=== PATIENT | male | born 1955 | race Caucasian/White ===

== ENCOUNTER 2016-11-14 13:13 | Emergency (ER) | payer OTHER ==
--- NOTE | ~2016-11-14 | CR72 ---
[facility] A Service of [facility] & [facility] RADIOLOGY TEXT RESULTS PATIENT: JEMAL TIPTON LOCATION: [place] : 53 UNIT #: [id number] AGE: [address]: Mirian Richmond MD SEX: M ORDER DR: [id number] [facility] [address] [place], [place] [address] [id number] E MR#: [id number] Acc #: [id number] NAME: JEMAL TIPTON : 1955 SEX: M STUDY DATE/TIME: 11/14/2016 13:21 UNIT: [facility] ROOM: STUDY DESCRIPTION: CR Chest Single View Portable Attending Physician: Mirian Richmond M.D. Ordering Physician: Mirian Richmond M.D. Primary Care Physician: No Primary Care Physician MEDICAL IMAGING REPORT This report is preliminary unless electronic signature is present EXAM AP portable chest, 11/14/2016. COMPARISON STUDIES None HISTORY Trach replacement today with cough and congestion. FINDINGS An AP view is obtained. The heart size appears normal. Lungs are clear. Tracheostomy tube remains in good position. No pneumothorax is seen. CONCLUSION Trach is in good position. No acute process in the chest. Dictated by... Abdi Perez M.D. THIS IS AN ELECTRONICALLY VERIFIED REPORT Abdi Perez M.D. at 11/15/2016 5:02 PM WILLAM/zain TD: 11/14/2016 14:49 JOB #: [id number] MEDICAL IMAGING REPORT Page 1 of 1 COPY
== END 2016-11-14 14:12 | disposition home or self-care (01) ==
LOC: CED 13:13
DX: Z43.0 Encounter for attention to tracheostomy (principal); J44.9 Chronic obstructive pulmonary disease, unspecified; I10 Essential (primary) hypertension
CPT/HCPCS: 71010; 99283

== ENCOUNTER 2016-12-24 10:47 | Emergency (ER) | payer OTHER ==
--- NOTE | ~2016-12-24 | CR72 ---
[facility] A Service of [facility] RADIOLOGY TEXT RESULTS PATIENT: JEMAL TIPTON LOCATION: [facility] : 53 UNIT #: [id number] AGE: [address]: Glynn Vo MD SEX: M ORDER DR: [id number] [facility] [address] [place], [place] [address] [id number] E MR#: [id number] Acc #: [id number] NAME: JEMAL TIPTON : 1955 SEX: M STUDY DATE/TIME: 12/24/2016 11:29 UNIT: [facility] ROOM: STUDY DESCRIPTION: CR Chest Single View Portable Attending Physician: Glynn Vo M.D. Ordering Physician: Glynn Vo M.D. Primary Care Physician: Primary Care Physician No MEDICAL IMAGING REPORT This report is preliminary unless electronic signature is present EXAM Chest portable 12/24/2016 1129 hours HISTORY 61-year-old man with cough, fever, elevated heart rate, shortness of air today with low blood pressure today. COMPARISON 11/14/2016. FINDINGS Portable upright chest demonstrates tracheostomy appliance with tip in the mid trachea. There is a right central venous port catheter with tip at the junction of SVC and right atrium. The heart size is normal. There is increase in soft tissue density in the right superior paramediastinal region with soft tissue density measuring 3.5 cm transverse from the lateral margin of the trachea to the lateral margin of the soft tissue density where it previously measured 2.6 cm. This could represent lymphadenopathy. Atelectatic lung is possible however the minor fissure is not changed in appearance and does not suggest significant volume loss in the upper lung. There is no definite pneumonia, effusion or pneumothorax. IMPRESSION 1. Stable tracheostomy appliance with tip in mid trachea. There is a right central venous port catheter with tip at the junction of SVC and right atrium. No pneumothorax. 2. There is increase in soft tissue density in the right superior paramediastinal, right paratracheal region as compared to 11/14/2016. This is worrisome for lymphadenopathy, however other entities including loculated pleural fluid could have this appearance. If the right central venous catheter is new, this could represent a hematoma. The catheter was not present on 11/14/2016 and I do not know when [facility] Service of [facility] RADIOLOGY TEXT RESULTS PATIENT: JEMAL TIPTON LOCATION: [place] : 51 UNIT #: [id number] AGE: [address]: Glynn Vo MD SEX: M ORDER DR: was inserted. STAT * RESULT Dictated by... Sera Blank M.D. THIS IS AN ELECTRONICALLY VERIFIED REPORT Sera Blank M.D. at 12/24/2016 2:26 PM JAKOB/clayton TD: 12/24/2016 12:09 JOB #: [id number] MEDICAL IMAGING REPORT Page 1 of 1 COPY
--- NOTE | ~2016-12-24 | EKG ---
PATIENT: JEMAL TIPTON UNIT #: [id number] Ventricular Rate: 122 BPM Atrial Rate: 122 BPM P-R Interval: 116 ms QRS Duration: 80 ms Q-T Interval: 326 ms QTC Calculation(Bezet): 464 ms P Byron: 58 degrees Calculated R Byron: -6 degrees Calculated T Byron: 79 degrees Diagnosis Line: Sinus tachycardia Diagnosis Line: Otherwise normal ECG Diagnosis Line: No previous ECGs available Diagnosis Line: Confirmed by BRAD JOAQUIN MD ([id number]) on Diagnosis Line: 12/25/2016 4:26:41 PM INTERPRETING MD: JEMAL DURON
[2016-12-24] MEDS ORDERED: ZYRTEC10 M1 PO (11:21)
[2016-12-24] MEDS ORDERED: NEURONTIN300 MG PO (11:21)
[2016-12-24] MEDS ORDERED: BACLOFEN10 MG PO (11:21)
[2016-12-24] MEDS ORDERED: ASPIRIN EC81 M1 PO (11:22)
[2016-12-24] MEDS ORDERED: AMLODIPINE BESY10 MG PO (11:22)
[2016-12-24] MEDS ORDERED: ATORVASTATIN CA40 MG PO (11:22)
[2016-12-24] MEDS ORDERED: PERCOCET7.5 PO (11:23)
[2016-12-24] MEDS ORDERED: TEMAZEPAM PO (11:23)
[2016-12-24] MEDS ORDERED: DURAGESIC1 EAC1 TD (11:24)
[2016-12-24] MEDS ORDERED: HYDROCODON-ACE1 EAC5 PO (11:26)
[2016-12-24] MEDS ORDERED: ZOFRANODT SL (11:27)
[2016-12-24 13:04] LABS: BASOPHIL% 1.3 % (0-2.5); EOSINOPHIL% 0.8 % (0.0-7.0); HEMATOCRIT 31.8 % (38.0-50.0); LYMPHOCYTE# 0.3 X10e3 (1.0-3.5); LYMPHOCYTE% 33.7 % (17.0-45.0); MEAN CELL VOLUME 79.9 FL (83-96); MEAN CORPUSCULAR HEMOGLOBIN 25.3 PG (28-34); MEAN CORPUSCULAR HGB CONC 31.6 g/dL (30-36); MEAN PLATELET VOLUME 10.1 FL (6.5-11.5); MONOCYTE# 0.1 X10e3 (0-1.0); MONOCYTE% 10.2 % (3.0-12.0); NEUTROPHIL# 0.5 X10e3 (1.5-7.1); PLATELET COUNT 246 X10e3 (140-420); RED BLOOD COUNT 3.97 X10e (3.90-5.60); RED CELL DISTRIBUTION WIDTH 16.6 % (11.0-15.5)
[2016-12-24 13:07] LABS: DIFF IND YES
[2016-12-24 13:16] LABS: URINE SOURCE CLEAN CATCH
[2016-12-24 13:27] LABS: URBCS1 AUWI 0-2 /[HPF] (0-2); URINE APPEARANCE CLOUDY; URINE BACTERIA AUWI NEG (NEGATIVE); URINE BILIRUBIN NEG (NEG); URINE BLOOD NEG (NEG); URINE COLOR YELLOW; URINE GLUCOSE NEG (NEG); URINE KETONE NEG (NEG); URINE LEUKOCYTE ESTERASE NEG (NEG); URINE NITRATE NEG (NEG); URINE PROTEIN 1+ (NEG); URINE SPECIFIC GRAVITY 1.026 (1.003-1.035); URINE SQUAMOUS EPITHELIAL CELL NONE SEEN /[HPF]
[2016-12-24 13:29] LABS: ALBUMIN SERUM 1.9 g/dL (3.5-5.0); BILIRUBIN,TOTAL 0.4 mg/dL (0.2-2.0); BUN/CREATININE RATIO 43.63; CALCIUM SERUM 7.8 mg/dL (8.4-10.2); CREATININE SERUM 1.1 mg/dL (0.6-1.4); GLOM FILT RATE Estimated 71.1 mL/min (>60); POTASSIUM 3.3 mmol/L (3.5-5.1); PROTEIN TOTAL SERUM 4.8 g/dL (6.0-8.3)
[2016-12-24 13:35] LABS: CULTURE INDICATED? NO; UWBCS1 AUWI 0-2 (0-5)
[2016-12-24 13:43] LABS: NUCLEATED RED BLOOD CELL 2 /100 (0)
[2016-12-24 13:44] LABS: ANISOCYTOSIS SL; HYPOCHROMIA SL; MICROCYTOSIS SL; PLATELET ESTIMATE NORMAL (NORMAL)
== END 2016-12-24 18:35 | disposition hospice, home (50) ==
LOC: CED 10:47
PROVIDERS: Emergency Medicine
DX: R50.9 Fever, unspecified (principal); Z79.899 Other long term (current) drug therapy
CPT/HCPCS: 36415; 71010; 80053; 81003; 83605; 85025; 87040; 93005; 96361; 96365; 96367; 96375; 99285; J2405; J2543; J3010; J3370